=== PATIENT | male | born 1985 | race Caucasian/White ===

== ENCOUNTER 2017-01-03 12:13 | Emergency (ER) | payer OTHER ==
[~2017-01-03] VITALS: Ht 188 cm; Wt 121.0 kg
[~2017-01-03 12:13] MED LIST: AMBIEN; ANTIVERT25 MG PO; ATARAX,VISTARIL25 MG PO; ATARAX10 MG PO; BACTRIM,SEPT1 TABLET PO; BACTROBAN OINTM22 GM TP; BENADRYL25 MG PO; BUDEPRION XL300 MG PO; BUPROPION HCL200 MG PO; CEFDINIR300 MG PO; ERYTHROMYCIN500 M1 PO; FIORICET,ESG1 TABLET PO; FLEXERIL10 MG PO; GEODON80 MG PO; IMITREX100 MG PO; IMITREX25 MG PO; KEFLEX500 MG PO; KLONOPIN0.5 M1 PO; LITHIUM CARBON150 MG PO; LITHIUM CARBON300 MG PO; NAPROSYN500 MG PO; NAPROXEN500 MG PO; NEURONTIN300 MG PO; NOHOMEMEDS; NORCO 5/3251 TABLET PO; OXCARBAZEPINE300 MG PO; PREDNISONE10 M1 PO; PREDNISONE20 MG PO; PROVENTIL HFA6.7 GM IH; PROVENTIL,200 INHALA IH; PROZAC40 MG PO; REGLAN10 MG PO; ROBITUSSIN AC,T10 ML PO; SEROQUEL XR200 MG PO; SEROQUEL100 MG PO; SEROQUEL50 MG PO; TEGRETOL-XR,CA100 MG PO; TEGRETOL200 MG PO; TOPAMAX100 MG PO; TOPAMAX200 MG PO; TOPIRAMATE100 MG PO; TRAMADOL HCL50 MG PO; TRILEPTAL600 MG PO; TYLENOL WITH C1 EACH PO; ULTRAM50 MG PO; VALIUM5 MG PO; VERELAN 240 MG240 MG PO; VICODIN 5-3001 EACH PO; WELLBUTRIN XL300 MG PO; ZITHROMAX Z-PA250 MG PO; ZOFRAN ODT4 MG PO; ZOFRAN4 MG PO; ZOLPIDEM TARTRA10 MG PO; [UNRECOGNIZED DRUG - OTHER]
[2017-01-03] MEDS ORDERED: GEODON40 MG PO (13:39)
[2017-01-03] MEDS ORDERED: DESYREL100 MG PO (13:40)
[2017-01-03] MEDS ORDERED: GEODON60 MG PO (13:40)
[2017-01-03] MEDS ORDERED: CARBAMAZEPINE200 M1 PO (13:41)
[2017-01-03] MEDS ORDERED: ULTRAM50 MG PO (14:10)
[2017-01-03] MEDS ORDERED: CLEOCIN300 MG PO (14:10)
[2017-01-03 14:21] VITALS: BP 134/86
== END 2017-01-03 14:22 | disposition home or self-care (01) ==
LOC: EME 12:13 → EXP 12:13
DX: K08.89 Other specified disorders of teeth and supporting structures (principal); F31.9 Bipolar disorder, unspecified; F17.220 Nicotine dependence, chewing tobacco, uncomplicated
CPT/HCPCS: 99281; 99283

== ENCOUNTER 2017-01-24 18:29 | Emergency (ER) | payer OTHER ==
[~2017-01-24] VITALS: Ht 188 cm; Wt 119.6 kg
[~2017-01-24 18:29] MED LIST changes: +CARBAMAZEPINE200 M1 PO; +CLEOCIN300 MG PO; +DESYREL100 MG PO; +GEODON40 MG PO; +GEODON60 MG PO
[2017-01-24 19:40] LABS: ADD MIUA? NO; BILIRUBIN NEGATIVE; BLOOD NEGATIVE; COLOR YELLOW ((YELLOW)); GLUCOSE (STRIP) NEGATIVE; KETONES NEGATIVE; LEUKOCYTES NEGATIVE; NITRITE NEGATIVE; PROTEIN (STRIP) NEGATIVE; SPECIFIC GRAVITY 1.023 (1.000-1.030); UCUL ADDED? NO; UROBILINOGEN 0.2 MG/DL (0.2-1.0)
[2017-01-24 20:41] VITALS: BP 140/93
== END 2017-01-24 20:42 | disposition home or self-care (01) ==
LOC: EME 18:29
PROVIDERS: Physician Assistant
DX: S70.02XA Contusion of left hip, initial encounter (principal); W20.8XXA Other cause of strike by thrown, projected or falling object, initial encounter; Z72.0 Tobacco use; Z88.6 Allergy status to analgesic agent; Z88.0 Allergy status to penicillin; Z91.030 Bee allergy status; J45.909 Unspecified asthma, uncomplicated; G40.909 Epilepsy, unspecified, not intractable, without status epilepticus
CPT/HCPCS: 73502; 81003; 99281; 99284

== ENCOUNTER 2017-02-04 13:00 | Emergency (ER) | payer OTHER ==
[~2017-02-04] VITALS: Ht 188 cm; Wt 122.1 kg
[2017-02-04 15:04] VITALS: BP 132/95
== END 2017-02-04 15:07 | disposition home or self-care (01) ==
LOC: RME 13:00 → EME 13:00 → RME 15:07
DX: S93.401A Sprain of unspecified ligament of right ankle, initial encounter (principal); S86.811A Strain of other muscle(s) and tendon(s) at lower leg level, right leg, initial encounter; S46.812A Strain of other muscles, fascia and tendons at shoulder and upper arm level, left arm, initial encounter; W17.2XXA Fall into hole, initial encounter; Z88.6 Allergy status to analgesic agent; Z88.0 Allergy status to penicillin
CPT/HCPCS: 73080; 73564; 73610; 99281; 99284

== ENCOUNTER 2017-02-26 21:54 | Emergency (ER) | payer OTHER ==
[~2017-02-26] VITALS: Ht 188 cm; Wt 120.8 kg
[2017-02-26 23:00] LABS: EOSINOPHIL (%) 0.9 % (0-5); EOSINOPHIL COUNT 0.1 K/uL (0-0.3); HEMATOCRIT 43.7 % (38.0-50.0); IMMATURE GRANULOCYTE (%) 0.4 % (0.0-0.7); INSTRUMENT ABS NEUTROPHIL CT 6.6 K/uL; LYMPHOCYTE COUNT 2.7 K/uL (1.0-2.8); MCH 30.3 PG (29.0-34.0); MCHC 34.1 G/DL (30.0-36.0); MCV 88.8 FL (86-99); MEAN PLAT.VOLUME 11.6 uM^3 (9.0-12.4); MONOCYTE COUNT 0.7 K/uL (0-0.8); NEUTROPHIL COUNT 6.6 K/uL (1.8-6.4); PLATELET COUNT 187 K/uL (156-360); RBC DIS.WIDTH-CV 12.4 % (11.8-14.6); RBC DIS.WIDTH-SD 40.4 % (39-53); RED BLOOD COUNT 4.92 M/uL (4.00-5.50); WHITE BLOOD COUNT 10.1 K/uL (4.1-10.2)
[2017-02-26 23:13] LABS: AMYLASE 52 IU/L (1-118); CHLORIDE 106 mEq/L (99-109); POTASSIUM 3.8 mEq/L (3.7-5.4); SODIUM 142 mEq/L (136-147)
[2017-02-26 23:15] LABS: GLUCOSE 83 mg/dL (70-99)
[2017-02-26 23:16] LABS: ANION GAP 12 MEQ/L (2-14)
[2017-02-26 23:18] LABS: SERUM ETHYL ALCOHOL < 10 mg/dL
[2017-02-26 23:19] LABS: GFR ESTIMATE (CALCULATED) > 59 mL/min/
[2017-02-26 23:20] LABS: UREA NITROGEN (BUN) 13 mg/dL (9-23)
[2017-02-26 23:22] LABS: LIPASE 35 U/L (1.0-51.0)
[2017-02-26] MEDS ORDERED: PERCOCET 5/31 TABLET PO (23:58)
[2017-02-27 00:53] VITALS: BP 136/72
== END 2017-02-27 00:54 | disposition home or self-care (01) ==
LOC: EME → EDBD 21:54 → EME 02-27 00:54
PROVIDERS: Emergency Medicine
DX: S93.401A Sprain of unspecified ligament of right ankle, initial encounter (principal); S39.012A Strain of muscle, fascia and tendon of lower back, initial encounter; W10.9XXA Fall (on) (from) unspecified stairs and steps, initial encounter; Y92.009 Unspecified place in unspecified non-institutional (private) residence as the place of occurrence of the external cause; R42 Dizziness and giddiness
CPT/HCPCS: 70450; 72110; 73610; 80048; 81003; 82150; 83690; 85025; 86900; 86901; 99281; 99284; G0480; J2270; J2405; J7030

== ENCOUNTER 2017-03-14 21:06 | Emergency (ER) | payer OTHER ==
[~2017-03-14] VITALS: Ht 188 cm; Wt 120.6 kg
[~2017-03-14 21:06] MED LIST changes: +PERCOCET 5/31 TABLET PO
[2017-03-14 21:26] VITALS: BP 126/88
[2017-03-14] MEDS ORDERED: NAPROSYN500 MG PO (22:42)
== END 2017-03-14 22:58 | disposition home or self-care (01) ==
LOC: EME 21:06
DX: S20.212A Contusion of left front wall of thorax, initial encounter (principal); V49.50XA Passenger injured in collision with unspecified motor vehicles in traffic accident, initial encounter; Y92.410 Unspecified street and highway as the place of occurrence of the external cause
CPT/HCPCS: 73030; 99281; 99282

== ENCOUNTER 2017-03-16 12:55 | Emergency (ER) | payer OTHER ==
[~2017-03-16] VITALS: Ht 188 cm; Wt 119.8 kg
[2017-03-16] MEDS ORDERED: FLEXERIL10 MG PO (14:51)
[2017-03-16] MEDS ORDERED: PREDNISONE20 MG PO (14:51)
[2017-03-16] MEDS ORDERED: ULTRAM50 MG PO (14:51)
[2017-03-16 15:19] VITALS: BP 130/60
== END 2017-03-16 15:20 | disposition home or self-care (01) ==
LOC: EME 12:55
DX: S16.1XXA Strain of muscle, fascia and tendon at neck level, initial encounter (principal); M54.41 Lumbago with sciatica, right side; X58.XXXA Exposure to other specified factors, initial encounter
CPT/HCPCS: 72100; 99281; 99283; J7512

== ENCOUNTER 2017-04-09 14:44 | Emergency (ER) | payer OTHER ==
[~2017-04-09] VITALS: Ht 188 cm; Wt 118.7 kg
[2017-04-09] MEDS ORDERED: CEFTIN250 MG PO (18:22)
[2017-04-09 18:50] VITALS: BP 135/79
== END 2017-04-09 18:50 | disposition home or self-care (01) ==
LOC: EME 14:44
DX: J03.90 Acute tonsillitis, unspecified (principal)
CPT/HCPCS: 71020; 87651 90; 99281; 99284; J8540

== ENCOUNTER 2017-04-17 18:10 | Emergency (ER) | payer OTHER ==
[~2017-04-17] VITALS: Ht 188 cm; Wt 119.2 kg
[~2017-04-17 18:10] MED LIST changes: +CEFTIN250 MG PO
[2017-04-17] MEDS ORDERED: PREDNISONE50 MG PO (21:53)
[2017-04-17] MEDS ORDERED: PEPCID20 MG PO (21:53)
[2017-04-17] MEDS ORDERED: EPIPEN ADU0.3 MG/0.3 IM (21:53)
[2017-04-17] MEDS ORDERED: BENADRYL50 MG PO (21:53)
[2017-04-17 22:13] VITALS: BP 122/93
== END 2017-04-17 22:39 | disposition home or self-care (01) ==
LOC: EME 18:10
DX: T63.441A Toxic effect of venom of bees, accidental (unintentional), initial encounter (principal); Z91.030 Bee allergy status
CPT/HCPCS: 99281; 99284; J1200; J2930; S0028

== ENCOUNTER 2017-04-30 21:24 | Emergency (ER) | payer OTHER ==
[~2017-04-30] VITALS: Ht 188 cm; Wt 116.6 kg
[~2017-04-30 21:24] MED LIST changes: +BENADRYL50 MG PO; +EPIPEN ADU0.3 MG/0.3 IM; +PEPCID20 MG PO; +PREDNISONE50 MG PO
[2017-05-01 00:56] LABS: ADD MIUA? NO; BILIRUBIN NEGATIVE; BLOOD NEGATIVE; COLOR YELLOW ((YELLOW)); GLUCOSE (STRIP) NEGATIVE; KETONES NEGATIVE; LEUKOCYTES NEGATIVE; NITRITE NEGATIVE; PROTEIN (STRIP) 30; SPECIFIC GRAVITY 1.032 (1.000-1.030); UROBILINOGEN 0.2 MG/DL (0.2-1.0)
[2017-05-01 01:06] LABS: ADD MEDTOX COMMENT Y; AMPHETAMINE NEGATIVE (500 ng/mL); BARBITURATES PRESUMPTIVE POSITIVE (200 ng/mL); BENZODIAZEPINES NEGATIVE (150 ng/mL); COCAINE NEGATIVE (150 ng/mL); INTERNAL CONTROLS VALID? YES; METHADONE NEGATIVE (200 ng/mL); METHAMPHETAMINE NEGATIVE (500 ng/mL); OPIATES (MORPHINE) NEGATIVE (100 ng/mL); OXYCODONE NEGATIVE (100 ng/mL); PHENCYCLIDINE NEGATIVE (25 ng/mL); PROPOXYPHENE NEGATIVE (300 ng/mL); THC CANNABINOIDS NEGATIVE (50 ng/mL); TRICYCLIC ANTIDEPRESSANTS NEGATIVE (300 ng/mL)
[2017-05-01 01:24] LABS: HEMATOCRIT 46.6 % (38.0-50.0); MCH 30.3 PG (29.0-34.0); MCHC 34.3 G/DL (30.0-36.0); MCV 88.3 FL (86-99); PLATELET COUNT 204 K/uL (156-360); RBC DIS.WIDTH-CV 12.3 % (11.8-14.6); RBC DIS.WIDTH-SD 39.8 % (39-53); RED BLOOD COUNT 5.28 M/uL (4.00-5.50); WHITE BLOOD COUNT 15.3 K/uL (4.1-10.2)
[2017-05-01 01:35] LABS: CHLORIDE 107 mEq/L (99-109); POTASSIUM 4.8 mEq/L (3.7-5.4); SODIUM 144 mEq/L (136-147)
[2017-05-01 01:38] LABS: GLUCOSE 99 mg/dL (70-99)
[2017-05-01 01:39] LABS: ANION GAP 9 MEQ/L (2-14)
[2017-05-01 01:40] LABS: TOTAL BILIRUBIN 0.3 mg/dL (0.0-1.0)
[2017-05-01 01:41] LABS: ALKALINE PHOSPHATASE 64 IU/L (3-129); GFR ESTIMATE (CALCULATED) > 59 mL/min/; SERUM ETHYL ALCOHOL 49 mg/dL
[2017-05-01 01:42] LABS: UREA NITROGEN (BUN) 11 mg/dL (9-23)
[2017-05-01] MEDS ORDERED: ZOFRAN4 MG PO (03:03)
[2017-05-01 03:30] VITALS: BP 141/95
[2017-05-01] MEDS ORDERED: MEDROL DOSEPAK4 MG PO (19:22)
[2017-05-01] MEDS ORDERED: FLEXERIL10 MG PO (19:22)
[2017-05-01] MEDS ORDERED: NORCO 5/3251 TABLET PO (19:22)
== END 2017-05-01 03:56 | disposition home or self-care (01) ==
LOC: EME 21:24
PROVIDERS: Emergency Medicine
DX: F10.129 Alcohol abuse with intoxication, unspecified (principal); K80.20 Calculus of gallbladder without cholecystitis without obstruction; J45.909 Unspecified asthma, uncomplicated; M10.9 Gout, unspecified; F90.9 Attention-deficit hyperactivity disorder, unspecified type; F41.9 Anxiety disorder, unspecified; F32.9 Major depressive disorder, single episode, unspecified; F20.9 Schizophrenia, unspecified; F17.290 Nicotine dependence, other tobacco product, uncomplicated; Z88.0 Allergy status to penicillin
CPT/HCPCS: 74177; 80053; 81003; 84999; 85027; 99281; 99285; G0480; J2405; J7030

== ENCOUNTER 2017-05-01 18:47 | Emergency (ER) | payer OTHER ==
[~2017-05-01] VITALS: Ht 188 cm; Wt 118.3 kg
[2017-05-01] MEDS ORDERED: NORCO 5/3251 TABLET PO (19:22)
[2017-05-01] MEDS ORDERED: FLEXERIL10 MG PO (19:22)
[2017-05-01] MEDS ORDERED: MEDROL DOSEPAK4 MG PO (19:22)
[2017-05-01 19:32] VITALS: BP 135/78
== END 2017-05-01 19:33 | disposition home or self-care (01) ==
LOC: EME 18:47
DX: M54.16 Radiculopathy, lumbar region (principal); Z88.0 Allergy status to penicillin; Z88.6 Allergy status to analgesic agent; Z91.030 Bee allergy status
CPT/HCPCS: 99281; 99283; J7512

== ENCOUNTER 2017-06-24 21:34 | Emergency (ER) | payer OTHER ==
[~2017-06-24] VITALS: Ht 188 cm; Wt 117.8 kg
[~2017-06-24 21:34] MED LIST changes: +MEDROL DOSEPAK4 MG PO
[2017-06-24 22:01] VITALS: BP 131/86
[2017-06-24] MEDS ORDERED: NORCO 5/3251 TABLET PO (23:42)
[2017-06-24] MEDS ORDERED: DOXYCYCLINE MO100 MG PO (23:42)
== END 2017-06-25 00:14 | disposition home or self-care (01) ==
LOC: EME 21:34 → RME 21:34
PROC: 3E0234Z Introduction of Serum, Toxoid and Vaccine into Muscle, Percutaneous Approach (ICD-10-PCS; principal; 2017-06-24)
DX: S80.851A Superficial foreign body, right lower leg, initial encounter (principal); W45.8XXA Other foreign body or object entering through skin, initial encounter; W34.010A Accidental discharge of airgun, initial encounter; Z23 Encounter for immunization; F90.9 Attention-deficit hyperactivity disorder, unspecified type; F31.9 Bipolar disorder, unspecified; F20.9 Schizophrenia, unspecified; F17.200 Nicotine dependence, unspecified, uncomplicated; Z88.0 Allergy status to penicillin
CPT/HCPCS: 73590; 99281; 99284

== ENCOUNTER 2017-08-06 17:48 | Emergency (ER) | payer OTHER ==
[~2017-08-06] VITALS: Ht 188 cm; Wt 118.1 kg
[~2017-08-06 17:48] MED LIST changes: +DOXYCYCLINE MO100 MG PO
[2017-08-06] MEDS ORDERED: FLEXERIL10 MG PO (21:21)
[2017-08-06 21:31] VITALS: BP 134/84
== END 2017-08-06 21:40 | disposition home or self-care (01) ==
LOC: EME 17:48 → TRA 17:48
DX: S39.012A Strain of muscle, fascia and tendon of lower back, initial encounter (principal); S93.401A Sprain of unspecified ligament of right ankle, initial encounter; W20.8XXA Other cause of strike by thrown, projected or falling object, initial encounter; Y93.89 Activity, other specified; J45.909 Unspecified asthma, uncomplicated; F32.9 Major depressive disorder, single episode, unspecified; F31.9 Bipolar disorder, unspecified; F20.9 Schizophrenia, unspecified; F41.9 Anxiety disorder, unspecified; Z88.0 Allergy status to penicillin; Z88.8 Allergy status to other drugs, medicaments and biological substances
CPT/HCPCS: 72128; 72131; 73590; 73610; 99281; 99284; J2270

== ENCOUNTER → 2017-09-11 | Emergency (ER) | payer OTHER ==
[~2017-09-11] VITALS: Ht 188 cm; Wt 120.4 kg
[2017-09-11 04:07] VITALS: BP 139/91
== END | disposition home or self-care (01) ==
LOC: RME 01:04 → EME 01:04
DX: S93.402A Sprain of unspecified ligament of left ankle, initial encounter (principal); S80.02XA Contusion of left knee, initial encounter; R55 Syncope and collapse; W18.30XA Fall on same level, unspecified, initial encounter; Z88.0 Allergy status to penicillin; Z88.6 Allergy status to analgesic agent
CPT/HCPCS: 73564; 73610; 73630; 99281; 99284

== ENCOUNTER 2017-11-20 23:58 | Emergency (ER) | payer OTHER ==
[~2017-11-20] VITALS: Ht 188 cm; Wt 120.4 kg
[2017-11-21] VITALS: BP 137/84
== END 2017-11-21 01:25 | disposition left against medical advice (07) ==
LOC: EME 23:58
DX: J02.9 Acute pharyngitis, unspecified (principal); N32.89 Other specified disorders of bladder; Z53.21 Procedure and treatment not carried out due to patient leaving prior to being seen by health care provider
CPT/HCPCS: 81003

== ENCOUNTER 2018-03-29 20:55 | Emergency (ER) | payer OTHER ==
[~2018-03-29] VITALS: Ht 188 cm; Wt 120.4 kg
[2018-03-29 21:22] LABS: HEMATOCRIT 45.5 % (38.0-50.0); HEMOGLOBIN 15.9 G/DL (12.5-16.6); MCH 30.5 PG (29.0-34.0); MCHC 34.9 G/DL (30.0-36.0); MCV 87.2 FL (86-99); PLATELET COUNT 194 K/uL (156-360); RBC DIS.WIDTH-CV 12.2 % (11.8-14.6); RBC DIS.WIDTH-SD 39.4 % (39-53); RED BLOOD COUNT 5.22 M/uL (4.00-5.50); WHITE BLOOD COUNT 8.8 K/uL (4.1-10.2)
[2018-03-29 21:31] LABS: CHLORIDE 104 mEq/L (99-109); POTASSIUM 4.2 mEq/L (3.7-5.4); SODIUM 143 mEq/L (136-147)
[2018-03-29 21:32] LABS: GLUCOSE 104 mg/dL (70-99)
[2018-03-29 21:36] LABS: CREATININE 1.1 mg/dL (0.6-1.3); GFR ESTIMATE (CALCULATED) > 59 mL/min/ (58.99-99999)
[2018-03-29 21:37] LABS: UREA NITROGEN (BUN) 13 mg/dL (9-23)
[2018-03-29 21:42] LABS: TROP-I INTERPRETATION NEGATIVE; TROPONIN-I < 0.01 ng/mL (0.0-0.30)
[2018-03-29 23:26] LABS: ALBUMIN 4.7 g/dL (3.2-4.8)
[2018-03-29 23:29] LABS: TOTAL PROTEIN 7.4 g/dL (6.4-8.3)
[2018-03-29 23:31] LABS: TOTAL BILIRUBIN 0.3 mg/dL (0.0-1.0)
[2018-03-29 23:32] LABS: ALKALINE PHOSPHATASE 75 IU/L (3-129)
[2018-03-29 23:35] LABS: ALT (GPT) 27 IU/L (3-49); AST (GOT) 22 IU/L (2-34); DIRECT BILIRUBIN 0.1 mg/dL (0.0-0.3)
[2018-03-29 23:36] LABS: LIPASE 43 U/L (1.0-51.0)
[2018-03-29 23:56] LABS: TROP-I INTERPRETATION NEGATIVE; TROPONIN-I < 0.01 ng/mL (0.0-0.30)
[2018-03-30] MEDS ORDERED: PEPCID20 MG PO (00:41)
[2018-03-30] MEDS ORDERED: LIDODERM 5% P1 PATCH TD (00:41)
[2018-03-30 01:31] VITALS: BP 136/82
== END 2018-03-30 01:42 | disposition home or self-care (01) ==
LOC: EME 20:55
PROVIDERS: Emergency Medicine
DX: M94.0 Chondrocostal junction syndrome [Tietze] (principal); Z82.49 Family history of ischemic heart disease and other diseases of the circulatory system; F17.220 Nicotine dependence, chewing tobacco, uncomplicated
CPT/HCPCS: 71046; 80048; 80076; 83690; 84484; 85027; 85379; 93005; 99281; 99284; J7030; S0028